=== PATIENT | female | born 1960 | race Asian ===

== ENCOUNTER 2022-01-23 00:27 | Inpatient (IN) | payer OTHER, MEDICARE ==
[~2022-01-23] VITALS: Ht 165.1 cm; Wt 44.0 kg
--- NOTE | 2022-01-23 01:12 | NUR ---
PT ARRIVED TO THE FLOOR AT APPROX 0030 VIA GURNY- TRANSFERED TO BED AT THIS TIME. ASSESSMENT AND VITALS TAKEN. PT IS A/O X4 AND REPORTS PAIN W/ MOVEMENT BUT STATES THAT IF SHE IS LAYING STILL SHE IS NOT EXPERIENCING ANY PAIN. ORIENTED TO THE ROOM AND CALL LIGHT. WILL CONTINUE TO MONITOR AND REPORT TO ONCOMING RN.
[2022-01-23] MEDS ORDERED: ALBU90OI INH (01:18)
[2022-01-23] MEDS ORDERED: LEFL20 PO (01:20)
[2022-01-23] MEDS ORDERED: BUDESONIDE-FO10.2 G2 IH (01:20)
[2022-01-23] MEDS ORDERED: ZOLP5 PO (01:21)
[2022-01-23] MEDS ORDERED: IBUP800 PO (01:21)
[2022-01-23] MEDS ORDERED: AMPDEX10 (01:22)
[2022-01-23] MEDS ORDERED: Norco 10-325 T1 EACH PO (01:22)
[2022-01-23 01:23] LABS: BASOPHILS ABSOLUTE AUTO 0.06 K/mm3 (0.00-0.23); BASOPHILS PERCENT AUTO 1 % (0-2); EOSINOPHILS ABSOLUTE AUTO 0.46 K/mm3 (0.00-0.68); EOSINOPHILS PERCENT AUTO 5 % (0-6); Hematocrit 34.5 % (33.0-51.0); Hemoglobin 11.7 g/dL (11.5-16.0); IMMATURE GRAN ABSOLUTE AUTO 0.02 K/mm3 (0.00-0.10); IMMATURE GRAN PERCENT AUTO 0 % (0-1); LYMPHOCYTES ABSOLUTE AUTO 2.37 K/mm3 (0.84-5.20); LYMPHOCYTES PERCENT AUTO 24 % (21-46); MONOCYTES ABSOLUTE AUTO 0.77 K/mm3 (0.16-1.47); MONOCYTES PERCENT AUTO 8 % (4-13); Mean Corpuscular HGB 32.7 pg (26.0-34.0); Mean Corpuscular HGB Conc 33.9 g/dL (31.5-36.5); Mean Corpuscular Volume 96 fL (80-100); Mean Platelet Volume 8.9 fL (9.1-12.4); NEUTROPHILS ABSOLUTE AUTO 6.34 K/mm3 (1.96-9.15); NEUTROPHILS PERCENT AUTO 63 % (41-73); Platelet Count 267 K/mm3 (150-400); RDW Coefficient Variation 12.3 % (11.7-14.2); RDW Standard Deviation 43.3 fL (35.1-46.3); Red Blood Cell Count 3.58 M/mm3 (3.80-5.20); White Blood Cell Count 10.02 K/mm3 (4.00-11.30)
[2022-01-23] MEDS ORDERED: SERT100 PO (01:23)
[2022-01-23] MEDS ORDERED: MIRT15 PO (01:24)
[2022-01-23] MEDS ORDERED: LORA10ER PO (01:24)
[2022-01-23 01:40] LABS: International Normalized Ratio 1.06; Prothrombin Time Results 11.1 Sec (9.7-11.5)
[2022-01-23 01:44] LABS: Albumin, Blood 3.1 g/dL (3.4-5.0); Albumin/Globulin Ratio 1.1 (0.8-1.8); Bilirubin, Total 0.3 mg/dL (0.1-1.0); Bun/Creatinine Ratio 25.3 (12.0-20.0); Calcium, Blood 8.4 mg/dL (8.5-10.1); Creatinine, Blood 0.55 mg/dL (0.40-1.00); Globulin, Blood 2.9 g/dL (2.2-4.0); Potassium, Blood 3.7 mmol/L (3.5-5.5)
[2022-01-23 08:12] LABS: Source, Urine Foley catheter
[2022-01-23 08:24] LABS: Appearance, Urine Clear (Clear); Bilirubin, Urine Neg (Neg); Blood, Urine Neg (Neg); Color, Urine Yellow (P-Yellow); Glucose Qualitative, Urine Neg (Neg); Ketones, Urine Neg (Neg); Leukocyte Esterase, Urine Neg (Neg); Nitrite, Urine Neg (Neg); Protein, Urine Neg (Neg); Specific Gravity, Urine 1.015 (1.003-1.022); Urobilinogen, Urine NORM (Normal)
[2022-01-23 11:55] LABS: Influenza A, PCR NEGATIVE (NEGATIVE); Influenza B, PCR NEGATIVE (NEGATIVE); Resp Syncytial Virus, PCR NEGATIVE (NEGATIVE); SARS-Cov-2 (COVID-19) PCR, MMC NEGATIVE (NEGATIVE)
--- NOTE | 2022-01-23 12:07 | NUR ---
PATIENT IS LEAVING FOR THE OR.
--- NOTE | 2022-01-23 14:17 | NUR ---
01/23/22 1417 Chato Clemente OTERO CATHETER IN SITU
--- NOTE | 2022-01-23 16:44 | NUR ---
SHIFT SUMMARY: PATIENT CAME BACK FROM PACU TODAY AT 1620. POD 0 LEFT GAMMA NAILING PATIENT IS A&OX4. VS ARE WNL AND IS ON RA. PATIENT REPORTS "ACHING" BUT REFUSES PAIN MEDICATIONS AT THIS TIME. LEFT HIP HAS TWO AQUACELS THAT ARE C/D/I. SHE IS WEIGHT BEARING TOLERATED ON THE LEFT HIP. PATIENT DENIES NUMBNESS AND TINGLING AND IS ABLE TO WIGGLE FINGERS AND TOES. SHE IS TOLERATING SMALL AMOUNTS OF PO INTAKE. OTERO IS PATENT AND IS DRAINING PER GRAVITY. CALL LIGHT WITHIN REACH. FAMILY AT BEDSIDE. THE PLAN IS TO CONTINUE PAIN MANAGEMENT AND TO WORK WITH PT TOMORROW.
[2022-01-24 04:42] LABS: Hematocrit 31.7 % (33.0-51.0); Hemoglobin 10.8 g/dL (11.5-16.0); Mean Corpuscular HGB 32.9 pg (26.0-34.0); Mean Corpuscular HGB Conc 34.1 g/dL (31.5-36.5); Mean Corpuscular Volume 97 fL (80-100); Mean Platelet Volume 9.4 fL (9.1-12.4); Platelet Count 256 K/mm3 (150-400); RDW Coefficient Variation 12.2 % (11.7-14.2); RDW Standard Deviation 42.9 fL (35.1-46.3); Red Blood Cell Count 3.28 M/mm3 (3.80-5.20); White Blood Cell Count 9.55 K/mm3 (4.00-11.30)
--- NOTE | 2022-01-24 04:57 | NUR ---
SHIFT SUMMARY: A&OX4. VERY PLEASANT. PODx1 L GAMMA HIP NAIL PINNING. TOLERATING MODERATE AMOUNTS OF PO FLUIDS. OTERO IN PLACE, PATENT AND DRAINING TO GRAVITY. REMAINS ON RA. X2 AQUACEL IN PLACE ON L HIP. WBAT, PLANS TO WORK WITH PHYSICAL THERAPY.PAIN WELL MANAGED WITH EMAR ORDERS. PT RESTING AT THIS TIME. CALL LIGHT REMAINS IN REACH.
[2022-01-24 05:03] LABS: Albumin, Blood 2.8 g/dL (3.4-5.0); Anion Gap 4 mmol/L (6-16); Blood Urea Nitrogen 15 mg/dL (8-24); Bun/Creatinine Ratio 31.5 (12.0-20.0); CO2, Blood 28 mmol/L (21-32); Calcium, Blood 8.2 mg/dL (8.5-10.1); Chloride, Blood 106 mmol/L (98-108); Creatinine, Blood 0.48 mg/dL (0.40-1.00); Glomerular Filtration Rate 108 (60-); Glucose, Blood 117 mg/dL (70-99); Phosphorus, Blood 3.9 mg/dL (2.5-4.9); Sodium, Blood 138 mmol/L (136-145)
[2022-01-24] MEDS ORDERED: ELIQUIS2.5 MG PO (13:55)
[2022-01-24] MEDS ORDERED: MIRALAX17 GM PO (13:56)
--- NOTE | 2022-01-24 14:26 | NUR ---
DISCHARGE SUMMARY PATIENT ALERT AND ORIENTED THROUGHOUT SHIFT. PAINFUL AT START OF SHIFT. STARTED A NEW IV AND WAS ABLE TO CONTROL PAIN WITH IV MEDS AND PO MEDS. AMBULATED WELL WITH PHYSICAL THERAPY. OTERO DC'D. VOIDING WELL. INCISIONS TO LEFT HIP WITH AQUACELS IN PLACE. C/D/I. TOLERATING REUGLAR DIET AND LIQUIDS. DISCHARGE ORDER OBTAINED. DISCHARGE EDUCATION GIVEN ON FOLLOW UP APPTS, NEW MEDS, WOUND CARE, AND ACTIVITY. IV DC'D WNL. PATIENT LEFT UNIT AT 1420 VIA WHEELCHAIR WITH SPOUSE FOR HOME.
== END 2022-01-24 14:33 | disposition home or self-care (01) | DRG 482 ==
LOC: SURS 00:27
PROVIDERS: Internal Medicine; Orthopaedic Surgery; ADMIT Internal Medicine
PROC: 0QS736Z Reposition Left Upper Femur with Intramedullary Internal Fixation Device, Percutaneous Approach (ICD-10-PCS; principal; 2022-01-23 12:30)
DX: S72.002A Fracture of unspecified part of neck of left femur, initial encounter for closed fracture (principal); W18.30XA Fall on same level, unspecified, initial encounter; F32.A Depression, unspecified; G47.00 Insomnia, unspecified; M85.80 Other specified disorders of bone density and structure, unspecified site; Z79.899 Other long term (current) drug therapy; J44.9 Chronic obstructive pulmonary disease, unspecified; F17.210 Nicotine dependence, cigarettes, uncomplicated; Z98.890 Other specified postprocedural states; M06.9 Rheumatoid arthritis, unspecified; Z20.822 Contact with and (suspected) exposure to COVID-19
CPT/HCPCS: 0241U; 36415; 73502; 73552; 80053; 80069; 81003; 85025; 85027; 85610; 94640; 94664; 94760; 97110; 97116; 97162; A9270; C1713; C1769; J0690; J1100; J1170; J1650; J1885; J2250; J2405; J2704; J2795; J3010; J7030; J7120

== ENCOUNTER → 2022-04-05 | Outpatient (CLI) | payer MEDICARE, OTHER ==
[~2022-04-05] MED LIST: ALBU90OI INH; AMPDEX10; BUDESONIDE-FO10.2 G2 IH; ELIQUIS2.5 MG PO; IBUP800 PO; LEFL20 PO; LORA10ER PO; MIRALAX17 GM PO; MIRT15 PO; Norco 10-325 T1 EACH PO; SERT100 PO; ZOLP5 PO
[2022-04-05 18:45] LABS: BASOPHILS ABSOLUTE AUTO 0.07 K/mm3 (0.00-0.23); BASOPHILS PERCENT AUTO 1 % (0-2); EOSINOPHILS ABSOLUTE AUTO 0.16 K/mm3 (0.00-0.68); EOSINOPHILS PERCENT AUTO 2 % (0-6); Hematocrit 38.4 % (33.0-51.0); Hemoglobin 13.2 g/dL (11.5-16.0); IMMATURE GRAN ABSOLUTE AUTO 0.03 K/mm3 (0.00-0.10); IMMATURE GRAN PERCENT AUTO 0 % (0-1); LYMPHOCYTES ABSOLUTE AUTO 1.74 K/mm3 (0.84-5.20); LYMPHOCYTES PERCENT AUTO 22 % (21-46); MONOCYTES ABSOLUTE AUTO 0.45 K/mm3 (0.16-1.47); MONOCYTES PERCENT AUTO 6 % (4-13); Mean Corpuscular HGB 33.2 pg (26.0-34.0); Mean Corpuscular HGB Conc 34.4 g/dL (31.5-36.5); Mean Corpuscular Volume 97 fL (80-100); Mean Platelet Volume 9.4 fL (9.1-12.4); NEUTROPHILS ABSOLUTE AUTO 5.54 K/mm3 (1.96-9.15); NEUTROPHILS PERCENT AUTO 69 % (41-73); Platelet Count 368 K/mm3 (150-400); RDW Coefficient Variation 12.3 % (11.7-14.2); RDW Standard Deviation 43.9 fL (35.1-46.3); Red Blood Cell Count 3.97 M/mm3 (3.80-5.20); White Blood Cell Count 7.99 K/mm3 (4.00-11.30)
[2022-04-05 19:05] LABS: Luteinizing Hormone 28.3 mIU/ml
[2022-04-05 19:07] LABS: Follicle Stimulating Hormone 67.5 mIU/ml
== END ==
LOC: LAB SHORT 14:30
PROVIDERS: Family Medicine
DX: N95.1 Menopausal and female climacteric states (principal); Z79.899 Other long term (current) drug therapy; T14.8XXA Other injury of unspecified body region, initial encounter
CPT/HCPCS: 83001; 83002; 85025

== ENCOUNTER → 2023-01-16 | Outpatient (CLI) | payer OTHER, MEDICARE ==
[2023-01-16 18:38] LABS: BASOPHILS ABSOLUTE AUTO 0.06 K/mm3 (0.00-0.23); BASOPHILS PERCENT AUTO 1 % (0-2); EOSINOPHILS ABSOLUTE AUTO 0.29 K/mm3 (0.00-0.68); EOSINOPHILS PERCENT AUTO 3 % (0-6); Hematocrit 41.3 % (33.0-51.0); Hemoglobin 13.8 g/dL (11.5-16.0); IMMATURE GRAN ABSOLUTE AUTO 0.02 K/mm3 (0.00-0.10); IMMATURE GRAN PERCENT AUTO 0 % (0-1); LYMPHOCYTES PERCENT AUTO 16 % (21-46); MONOCYTES PERCENT AUTO 6 % (4-13); Mean Corpuscular HGB 33.3 pg (26.0-34.0); Mean Corpuscular HGB Conc 33.4 g/dL (31.5-36.5); Mean Corpuscular Volume 100 fL (80-100); Mean Platelet Volume 9.4 fL (9.1-12.4); NEUTROPHILS ABSOLUTE AUTO 6.48 K/mm3 (1.96-9.15); NEUTROPHILS PERCENT AUTO 74 % (41-73); Platelet Count 353 K/mm3 (150-400); RDW Coefficient Variation 13.6 % (11.7-14.2); RDW Standard Deviation 49.1 fL (35.1-46.3); Red Blood Cell Count 4.15 M/mm3 (3.80-5.20); White Blood Cell Count 8.75 K/mm3 (4.00-11.30)
[2023-01-16 19:31] LABS: Alanine Aminotransfer (ALT/SGP 28 U/L (12-78); Albumin, Blood 3.9 g/dL (3.4-5.0); Albumin/Globulin Ratio 1.1 (0.8-1.8); Alk Phos 84 U/L (50-136); Anion Gap 1 mmol/L (6-16); Aspartate Aminotrans (AST/SGOT 20 U/L (12-37); Bilirubin, Total 0.4 mg/dL (0.1-1.0); Blood Urea Nitrogen 13 mg/dL (8-24); Bun/Creatinine Ratio 22.6 (12.0-20.0); CHOL/HDL RATIO 2.4; CO2, Blood 30 mmol/L (21-32); Calcium, Blood 9.2 mg/dL (8.5-10.1); Chloride, Blood 103 mmol/L (98-108); Cholesterol 172 mg/dL (50-200); Creatinine, Blood 0.57 mg/dL (0.40-1.00); Globulin, Blood 3.5 g/dL (2.2-4.0); Glomerular Filtration Rate 103 (60-); Glucose, Blood 102 mg/dL (70-99); HDL Cholesterol 73 mg/dL (>39); LDL/HDL RATIO 1.1; Low Density Lipoprotein Chol 81 mg/dL (0-110); Potassium, Blood 4.7 mmol/L (3.5-5.5); Sodium, Blood 134 mmol/L (136-145); Thyroid Stimulating Hormone 0.687 uIU/mL (0.360-4.800); Total Protein, Blood 7.4 g/dL (6.4-8.2); Triglycerides 90 mg/dL (30-160); Very Low Density Lipoprot Chol 18 mg/dL (6-32)
[2023-01-19 08:10] LABS: HBSAG SCREEN Negative (Negative); HCV AB Non Reactive (Non Reactive); HEP B CORE AB, TOT Negative (Negative)
== END | disposition home or self-care (01) ==
LOC: LAB SHORT 11:35 → LAB 11:35
PROVIDERS: Family Medicine
DX: Z51.81 Encounter for therapeutic drug level monitoring (principal); Z79.899 Other long term (current) drug therapy
CPT/HCPCS: 80053; 80061; 84443; 85025; 86704; 86708; 86803; 87340

== ENCOUNTER → 2023-10-24 | Outpatient (CLI) | payer OTHER, MEDICARE | END | disposition home or self-care (01) | LOC: LAB SHORT 18:10 → LAB 18:10 | DX: R53.83 Other fatigue (principal) | CPT/HCPCS: 84443 ==

== ENCOUNTER → 2024-07-23 | Outpatient (CLI) | payer MEDICARE ==
[2024-07-23 19:30] LABS: BASOPHILS ABSOLUTE AUTO 0.08 K/mm3 (0.00-0.23); BASOPHILS PERCENT AUTO 1 % (0-2); EOSINOPHILS PERCENT AUTO 3 % (0-6); Hematocrit 40.9 % (33.0-51.0); Hemoglobin 13.8 g/dL (11.5-16.0); IMMATURE GRAN ABSOLUTE AUTO 0.02 K/mm3 (0.00-0.10); IMMATURE GRAN PERCENT AUTO 0 % (0-1); LYMPHOCYTES PERCENT AUTO 21 % (21-46); MONOCYTES ABSOLUTE AUTO 0.52 K/mm3 (0.16-1.47); MONOCYTES PERCENT AUTO 6 % (4-13); Mean Corpuscular HGB 33.2 pg (26.0-34.0); Mean Corpuscular HGB Conc 33.7 g/dL (31.5-36.5); Mean Corpuscular Volume 98 fL (80-100); Mean Platelet Volume 9.4 fL (9.1-12.4); NEUTROPHILS ABSOLUTE AUTO 5.99 K/mm3 (1.96-9.15); NEUTROPHILS PERCENT AUTO 69 % (41-73); Platelet Count 381 K/mm3 (150-400); RDW Coefficient Variation 12.2 % (11.7-14.2); RDW Standard Deviation 44.4 fL (35.1-46.3); Red Blood Cell Count 4.16 M/mm3 (3.80-5.20); White Blood Cell Count 8.71 K/mm3 (4.00-11.30)
[2024-07-23 19:53] LABS: Bilirubin, Total 0.2 mg/dL (0.1-1.0); Bun/Creatinine Ratio 24.8 (12.0-20.0); Calcium, Blood 9.4 mg/dL (8.5-10.1); Creatinine, Blood 0.69 mg/dL (0.40-1.00); Free Thyroxine 1.25 ng/dL (0.70-1.60); Globulin, Blood 3.9 g/dL (2.2-4.0); Potassium, Blood 4.2 mmol/L (3.5-5.5); Thyroid Stimulating Hormone 0.828 uIU/mL (0.360-4.800); Total Protein, Blood 7.9 g/dL (6.4-8.2)
== END ==
LOC: LAB 12:22 → LAB SHORT 12:22
PROVIDERS: Family Medicine
DX: R61 Generalized hyperhidrosis (principal)
CPT/HCPCS: 80053; 84439; 84443; 85025